=== PATIENT | male | born 1960 | race Two or more races ===

== ENCOUNTER 2018-04-01 17:15 | Emergency (ER) | payer BC ==
[2018-04-01] MEDS: IPRATRPIUM/ALBUTEROL 0.5/2.5MG 3 ML NEBU. NEB (17:42)
[2018-04-01 18:02] LABS: ADD MAN DIFF? NO
[2018-04-01] MEDS: BENZONATATE 100 MG CAPSULE. PO (18:03)
[2018-04-01] MEDS: predniSONE 20 MG TABLET PO (18:03)
[2018-04-01 18:04] LABS: BASO # 0.1 x10^3/uL (0.0-0.2); BASO % 1 % (0-3); EOS # 0.3 x10^3/uL (0.0-0.7); EOS % 4 % (0-3); HEMATOCRIT 44.8 % (39.0-53.0); HEMOGLOBIN 15.3 g/dL (13.0-17.5); LYMPH % 32 % (24-48); MEAN CORPUSCULAR HEMOGLOBIN 31 pg (25-35); MEAN CORPUSCULAR HGB CONC 34 g/dL (31-37); MEAN CORPUSCULAR VOLUME 92 fL (79-100); MONO # 0.9 x10^3/uL (0.0-1.1); MONO % 14 % (0-9); NEUT # 3.1 x10^3uL (1.8-7.7); NEUT % 49 % (31-73); PLATELET COUNT 238 x10^3/uL (140-400); RED BLOOD COUNT 4.89 x10^6/uL (4.30-5.70); RED CELL DISTRIBUTION WIDTH 14.3 % (11.5-14.5); WHITE BLOOD COUNT 6.4 x10^3/uL (4.0-11.0)
[2018-04-01 18:13] LABS: INR 1.1 (0.8-1.1); PROTHROMBIN TIME PATIENT 13.2 SEC (11.7-14.0)
[2018-04-01 18:16] LABS: D-DIMER 0.78 ug/mlFEU (0.00-0.50)
[2018-04-01 18:25] LABS: ANION GAP 9 (6-14); BLOOD UREA NITROGEN 18 mg/dL (8-26); CALCIUM 8.7 mg/dL (8.5-10.1); CARBON DIOXIDE 27 mmol/L (21-32); CHLORIDE 101 mmol/L (98-107); CREATININE 0.9 mg/dL (0.7-1.3); GFR 87.6; GLUCOSE 128 mg/dL (70-99); MAGNESIUM 1.9 mg/dL (1.8-2.4); POTASSIUM 3.9 mmol/L (3.5-5.1); SODIUM 137 mmol/L (136-145)
[2018-04-01 18:28] LABS: TROPONINI < 0.017 ng/mL (0.000-0.055)
[2018-04-01 18:32] LABS: THYROID STIM HORMONE (TSH) 0.826 uIU/mL (0.358-3.74)
[2018-04-01 18:35] LABS: NT-PRO BNP 8 pg/mL (0-124)
[2018-04-01 18:35] LABS: CKMB INDEX 0.6 % (0-4); CREATINE KINASE 361 U/L (39-308)
[2018-04-01 18:58] LABS: BILIRUBIN,URINE NEGATIVE (NEG); CLARITY,URINE CLEAR; COLOR,URINE YELLOW; GLUCOSE,URINE NEGATIVE (NEG); NITRITE,URINE NEGATIVE (NEG); PROTEIN,URINE NEGATIVE (NEG-TRACE)
[2018-04-01] MEDS ORDERED: CONTRAST GIVEN MC (19:00)
[2018-04-01 19:04] LABS: BARBITURATES NEG (NEG); BENZODIAZEPINES NEG (NEG); CANNABINOIDS POS (NEG); COCAINE NEG (NEG); METHADONE NEG (NEG); OPIATES NEG (NEG); PHENCYCLIDINE NEG (NEG)
[2018-04-01 19:05] LABS: AMPHETAMINE/METHAMPHETAMINE NEG (NEG); ETHANOL, URINE NEG (NEG)
[2018-04-01 19:10] LABS: BACTERIA,URINE 0 /HPF (0-FEW)
[2018-04-01] MEDS: IOHEXOL 300 MG/ML 100ML VIAL. IV (19:30)
[2018-04-02 08:08] LABS: NEGATIVE OBC STREP NEG; POSITIVE OBC STREP POS
== END 2018-04-01 21:10 | disposition home or self-care (01) ==
LOC: ER 21:10
DX: J20.9 Acute bronchitis, unspecified (principal); Z88.0 Allergy status to penicillin
CPT/HCPCS: 36415; 71045; 71275; 80048; 80307; 81001; 82553; 83735; 83880; 84443; 84484; 85025; 85379; 85610; 87070; 87880; 93005; 94640; 99285-25; J7512; J7620; Q9967

== ENCOUNTER 2018-11-09 18:23 | Observation (INO) | payer BC ==
[~2018-11-09] VITALS: Ht 175.3 cm; Wt 86.4 kg
[~2018-11-09 18:23] MED LIST: ALBU2.5V8 INH; AZIT250T6 PO; BENZ100C PO; PRED20TA PO
[2018-11-09 18:55] LABS: BASO # 0.1 x10^3/uL (0.0-0.2); BASO % 1 % (0-3); EOS # 0.1 x10^3/uL (0.0-0.7); EOS % 1 % (0-3); HEMATOCRIT 40.6 % (39.0-53.0); HEMOGLOBIN 14.2 g/dL (13.0-17.5); LYMPH % 41 % (24-48); MEAN CORPUSCULAR HEMOGLOBIN 32 pg (25-35); MEAN CORPUSCULAR HGB CONC 35 g/dL (31-37); MEAN CORPUSCULAR VOLUME 92 fL (79-100); MONO # 0.6 x10^3/uL (0.0-1.1); MONO % 8 % (0-9); NEUT # 3.7 x10^3uL (1.8-7.7); NEUT % 49 % (31-73); PLATELET COUNT 204 x10^3/uL (140-400); RED BLOOD COUNT 4.42 x10^6/uL (4.30-5.70); RED CELL DISTRIBUTION WIDTH 13.9 % (11.5-14.5); WHITE BLOOD COUNT 7.4 x10^3/uL (4.0-11.0)
[2018-11-09] MEDS ORDERED: NITROGLYCERIN SUBLINGUAL 0.4 MG BOTTLE OF 25. SL PRN ×2 (19:00→20:15)
--- NOTE | 2018-11-09 19:03 | PHYS DOC ---
Past Medical History Past Medical History: Diabetes-Type II, High Cholesterol, Hypertension Past Surgical History: Other Additional Past Surgical Histo: Cyst removed behind R)knee,hemorrhoids. Alcohol Use: None Drug Use: None Adult General Chief Complaint Chief Complaint: CHEST PAIN HPI HPI Patient is a 57 year old male presenting with chest pain. He's had this pain on and off for the last few days it is described as a muscle spasm he feels it around both ribs areas and also in his scapula. It happened about 90 minutes ago he took aspirin now he feels better he also was burping at the time but his blood pressure was over 200 he was worried about that. Review of Systems Review of Systems Constitutional: Denies fever or chills [] Eyes: Denies change in visual acuity, redness, or eye pain [] HENT: Denies nasal congestion or sore throat [] Respiratory: no cough Cardiovascular: No additional information not addressed in HPI [] GI: Denies , bloody stools or diarrhea [] : Denies dysuria or hematuria [] Musculoskeletal: Denies back pain or joint pain [] All other systems were reviewed and found to be within normal limits, except as documented in this note. Current Medications Current Medications Current Medications Medications (Trade) Dose Ordered Sig/Alaina Start Time Stop Time Status Last Admin Dose Admin Nitroglycerin (Nitrostat) 0.4 mg PRN Q5MIN PRN 11/09/18 19:00 Allergies Allergies Allergies Coded Allergies Type Severity Reaction Last Updated Verified Penicillins Allergy Unknown Unknown. 08/10/14 Yes Physical Exam Physical Exam Constitutional: Well developed, well nourished, no acute distress, non-toxic appearance. [] HENT: Normocephalic, atraumatic, bilateral external ears normal, oropharynx moist, no oral exudates, nose normal. [] Eyes: PERRLA, EOMI, conjunctiva normal, no discharge. [] Neck: Normal range of motion, no tenderness, supple, no stridor. [] Cardiovascular:Heart rate regular rhythm, no murmur [] Lungs & Thorax: Bilateral breath sounds clear to auscultation [] Abdomen: Bowel sounds normal, soft, no tenderness, no masses, no pulsatile masses. [] Skin: Warm, dry, no erythema, no rash. [] Back: No tenderness, no CVA tenderness. [] Extremities: No tenderness, no cyanosis, no clubbing, ROM intact, no edema. [] Neurologic: Alert and oriented X 3, normal motor function, normal sensory function, no focal deficits noted. [] Psychologic: Affect normal, judgement normal, mood normal. [] Current Patient Data Vital Signs Vital Signs Date Time Temp Pulse Resp B/P (MAP) Pulse Ox O2 Delivery O2 Flow Rate FiO2 11/09/18 18:35 98.1 60 21 179/86 (117) 100 Room Air 98.1 Lab Values Laboratory Tests Test 11/09/18 18:35 White Blood Count 7.4 x10^3/uL (4.0-11.0) Red Blood Count 4.42 x10^6/uL (4.30-5.70) Hemoglobin 14.2 g/dL (13.0-17.5) Hematocrit 40.6 % (39.0-53.0) Mean Corpuscular Volume 92 fL (79-100) Mean Corpuscular Hemoglobin 32 pg (25-35) Mean Corpuscular Hemoglobin Concent 35 g/dL (31-37) Red Cell Distribution Width 13.9 % (11.5-14.5) Platelet Count 204 x10^3/uL (140-400) Neutrophils (%) (Auto) 49 % (31-73) Lymphocytes (%) (Auto) 41 % (24-48) Monocytes (%) (Auto) 8 % (0-9) Eosinophils (%) (Auto) 1 % (0-3) Basophils (%) (Auto) 1 % (0-3) Neutrophils # (Auto) 3.7 x10^3uL (1.8-7.7) Lymphocytes # (Auto) 3.0 x10^3/uL (1.0-4.8) Monocytes # (Auto) 0.6 x10^3/uL (0.0-1.1) Eosinophils # (Auto) 0.1 x10^3/uL (0.0-0.7) Basophils # (Auto) 0.1 x10^3/uL (0.0-0.2) Prothrombin Time 13.4 SEC (11.7-14.0) Prothrombin Time INR 1.1 (0.8-1.1) Sodium Level 143 mmol/L (136-145) Potassium Level 4.0 mmol/L (3.5-5.1) Chloride Level 104 mmol/L (98-107) Carbon Dioxide Level 29 mmol/L (21-32) Anion Gap 10 (6-14) Blood Urea Nitrogen 11 mg/dL (8-26) Creatinine 0.9 mg/dL (0.7-1.3) Estimated GFR (Cockcroft-Gault) 87.6 BUN/Creatinine Ratio 12 (6-20) Glucose Level 101 mg/dL (70-99) H Calcium Level 9.2 mg/dL (8.5-10.1) Total Bilirubin 0.3 mg/dL (0.2-1.0) Aspartate Amino Transferase (AST) 21 U/L (15-37) Alanine Aminotransferase (ALT) 36 U/L (16-63) Alkaline Phosphatase 60 U/L (46-116) Troponin I Quantitative < 0.017 ng/mL (0.000-0.055) QY-Vlu-Q-Type Natriuretic Peptide 28 pg/mL (0-124) Total Protein 7.2 g/dL (6.4-8.2) Albumin 4.0 g/dL (3.4-5.0) Albumin/Globulin Ratio 1.3 (1.0-1.7) Laboratory Tests 11/09/18 18:35 Laboratory Tests 11/09/18 18:35 EKG EKG [] Interpretation Time: EKG shows a normal sinus rhythm rate of 59 no acute ischemic changes noted interpreted by me the time of encounter no STEMI was seen. Radiology/Procedures Radiology/Procedures [] Impressions: CXR NEG ACUTE INTERP BY ME AT TIME OF ENCOUNTER. Course & Med Decision Making Course & Med Decision Making Pertinent Labs and Imaging studies reviewed. (See chart for details) []chest pain some atypical features does not sound like pe or dissection no risk stratifcation multilpe risk factors admit for further mgmt h 1 e 0 a 1 r 2 t 0 d/w josh AT 8 PM REQUESTS admit card consult. pt aware, feels better bp down to 150's toko asa prior to arrival Dragon Disclaimer Dragon Disclaimer This electronic medical record was generated, in whole or in part, using a voice recognition dictation system. Departure Departure Impression: Primary Impression: Chest pain Disposition: ADMITTED INPATIENT Condition: STABLE Referrals: NO PCP (PCP) RACHELE MERCHANT MD Nov 09, 2018 19:03
[2018-11-09 19:04] LABS: PROTHROMBIN TIME PATIENT 13.4 SEC (11.7-14.0)
[2018-11-09 19:17] LABS: CALCIUM 9.2 mg/dL (8.5-10.1); CREATININE 0.9 mg/dL (0.7-1.3); GFR 87.6
[2018-11-09] MEDS ORDERED: OLME20TA17 PO (19:19)
[2018-11-09] MEDS ORDERED: PRAV10TA2 PO (19:19)
[2018-11-09] MEDS ORDERED: METF500T9 PO (19:19)
[2018-11-09] MEDS ORDERED: ASPI81TA50 PO (19:19)
[2018-11-09 19:22] LABS: ALBUMIN/GLOBULIN RATIO 1.3 (1.0-1.7); TOTAL BILIRUBIN 0.3 mg/dL (0.2-1.0); TOTAL PROTEIN 7.2 g/dL (6.4-8.2)
--- NOTE | 2018-11-09 19:49 | EKG ---
[facility] [address] [place] [address] Test Date: 2018-11-09 Test Time: 18:32:40 Pat Name: BLANCA WOODARD Department: Room: Gender: M Legal Contracts Specialist: : 1960 Requested By: RACHELE MERCHANT Order Number: [id number] Reading MD: Measurements Intervals [place] Rate: 59 P: 31 OK: 182 QRS: -27 QRSD: 108 T: 19 QT: 404 QTc: 404 Interpretive Statements SINUS RHYTHM LEFTWARD AXIS QRS(T) CONTOUR ABNORMALITY CONSIDER ANTEROSEPTAL MYOCARDIAL DAMAGE POSSIBLY ABNORMAL ECG RI6.01 No previous ECG available for comparison
[2018-11-09] MEDS ORDERED: fentaNYL PF VIAL 100 MCG/2 ML VIAL IV ONE (20:15)
[2018-11-09 21:20] VITALS: BP 140/78
--- NOTE | 2018-11-09 21:35 | NUR ---
Pt arrived to room 263 per wheelchair. Assessment completed vss poc explained pt denies pain at time of assessment will resume care and continue to monitor pt. call light in reach.
--- NOTE | 2018-11-09 22:33 | RAD ---
PORTABLE CHEST 1V Clinical Indication: Chest pain Comparison: AP chest April 01, 2018. Findings: The cardiomediastinal silhouette is normal. Lungs are clear. There is no pneumothorax. No pleural effusion is appreciated. No acute bone abnormality. Degenerative endplate spurring of the thoracic spine. IMPRESSION: No acute cardiopulmonary process. Electronically signed by: Surinder Nguyen MD (11/09/2018 10:29 PM) [facility]
[2018-11-09] MEDS ORDERED: DEXTROSE 50% 25 GM / 50ML DISP.SYRIN. IV PRN (22:45)
[2018-11-09] MEDS ORDERED: ALBUTEROL SULFATE 2.5 MG/3 ML NEBU. INH PRN (22:45)
[2018-11-09] MEDS: BENZONATATE 100 MG CAPSULE. PO SCH (23:00)
[2018-11-09] MEDS ORDERED: ATORVASTATIN CALCIUM 10 MG TABLET. PO SCH (23:00)
[2018-11-09 23:20] VITALS: BP 143/76
[2018-11-10 02:50] VITALS: BP 123/69
--- NOTE | 2018-11-10 04:53 | EKG ---
[facility] [address] [place] [address] Test Date: 2018-11-10 Test Time: 04:46:06 Pat Name: BLANCA WOODARD Department: Room: 263 1 Gender: M Public Relations Consultant: JOSHUA : 1960 Requested By: JUNE MACHADO Order Number: [id number] Reading MD: Measurements Intervals [place] Rate: 43 P: 43 [place]: 206 QRS: -26 QRSD: 114 T: 5 QT: 488 QTc: 417 Interpretive Statements SINUS BRADYCARDIA LEFTWARD AXIS NO SPECIFIC ECG ABNORMALITIES RI6.01 Compared to ECG 04/01/2018 18:00:00 Left-axis deviation now present Sinus rhythm no longer present
[2018-11-10 07:50] VITALS: BP 112/60
[2018-11-10] MEDS: metFORMIN 500 MG TABLET PO SCH ×2 (08:00→17:00)
[2018-11-10] MEDS: INSULIN LISPRO 300 UNITS/3 ML INSULN.PEN. SQ SCH ×3 (08:00→17:00)
[2018-11-10 08:05] LABS: CHOLESTEROL/HDL RATIO 3.3
[2018-11-10] MEDS ORDERED: LOSARTAN POTASSIUM 50 MG TABLET. PO SCH (09:00)
[2018-11-10] MEDS ORDERED: ASPIRIN ENTERIC COATED 81 MG TABLET.DR. PO SCH (09:00)
[2018-11-10] MEDS ORDERED: AZITHROMYCIN 250 MG TABLET. PO SCH (09:00)
[2018-11-10] MEDS ORDERED: predniSONE 20 MG TABLET PO SCH (09:00)
[2018-11-10] MEDS: BENZONATATE 100 MG CAPSULE. PO SCH ×2 (09:00→14:00)
[2018-11-10 11:20] VITALS: BP 105/57
--- NOTE | 2018-11-10 11:28 | CARD ---
MR#: [id number] Date of Study: 11/10/2018 Ordering Physician: JUNE MACHADO, Referring Physician: JUNE MACHADO, Tech: Wendy Hermosillo APPROVED REPORT EXAM: Two-dimensional and M-mode echocardiogram with Doppler and color Doppler. Other Information Quality : GoodHR: 47bpm INDICATION Chest Pain 2D DIMENSIONS RVDd3.0 (2.9-3.5cm)Left Atrium(2D)3.0 (1.6-4.0cm) IVSd0.9 (0.7-1.1cm)Aortic Root(2D)3.0 (2.0-3.7cm) LVDd4.7 (3.9-5.9cm)LVOT Diameter2.3 (1.8-2.4cm) PWd0.9 (0.7-1.1cm)LVDs3.2 (2.5-4.0cm) FS (%) 31.7 %SV60.8 ml LVEF(%)59.6 (>50%) Aortic Valve AoV Peak Armand.129.6cm/sAoV VTI30.9cm AO Peak GR.6.7mmHgLVOT Peak Armand.101.7cm/s LVOT VTI 25.45cmAO Mean GR.4mmHg SANDRITA (VMAX)2.41xk8FEO (VTI)3.31cm2 Mitral Valve MV E Cepiiqao59.6cm/sMV DECEL [id number] MV A Cbusorse00.7cm/sMV TBH15xv E/A Ratio1.1MVA (PHT)2.95cm2 TDI E/Lateral E'5.9E/Medial E'7.8 Pulmonary Valve PV Peak Oaairfof193.7cm/sPV Peak Grad.4mmHg Tricuspid Valve TR P. Xniaascf424fi/sTR Peak Gr.16mmHg Pulmonary Vein S1 Iodyodca63.9cm/sD2 Ewnatowj01.3cm/s PVa [id number] LEFT VENTRICLE The left ventricle is normal size. There is normal left ventricular wall thickness. The left ventricu lar systolic function is normal and the ejection fraction is within normal range. The Ejection Fracti on is 55% There is normal LV segmental wall motion. The left ventricular diastolic function and filli ng is normal for age. RIGHT VENTRICLE The right ventricle is normal size. There is normal right ventricular wall thickness. The right ventr icular systolic function is normal. ATRIA The left atrium size is normal. The right atrium size is normal. The interatrial septum is intact wit h no evidence for an atrial septal defect or patent foramen ovale as noted on 2-D or Doppler imaging. AORTIC VALVE The aortic valve is thickened but opens well. Doppler and Color Flow revealed no significant aortic r egurgitation. There is no significant aortic valvular stenosis. MITRAL VALVE The mitral valve is normal in structure and function. There is no evidence of mitral valve prolapse. There is no mitral valve stenosis. Doppler and Color-flow revealed trace mitral regurgitation. TRICUSPID VALVE The tricuspid valve is normal in structure and function. Doppler and Color Flow revealed trace tricus pid regurgitation. There is no tricuspid valve stenosis. PULMONIC VALVE The pulmonic valve is not well visualized. Doppler and Color Flow revealed trace pulmonic valvular re gurgitation. There is no pulmonic valvular stenosis. GREAT VESSELS The aortic root is normal in size. Normal pulmonary venous flow (Doppler). The IVC was not visualized . PERICARDIAL EFFUSION There is no evidence of significant pericardial effusion. Critical Notification Critical Value: No <Conclusion> The left ventricular systolic function is normal and the ejection fraction is within normal range. Th e Ejection Fraction is 55% There is normal LV segmental wall motion. The left ventricular diastolic function and filling is normal for age. Signed by : Hany Garrido, Electronically Approved : 11/10/2018 11:26:55
--- NOTE | 2018-11-10 11:49 | PDOC2 ---
NATALI OG OPTICAL ENGINEERING MANAGER 11/10/18 1149: CARDIAC CONSULT DATE OF CONSULT Date of Consult DATE: 11/10/18 TIME: 11:26 REASON FOR CONSULT Reason for Consult: chest pain REFERRING PHYSICIAN Referring Physician: Mima SOURCE Source: Chart review, Patient HISTORY OF PRESENT ILLNESS HISTORY OF PRESENT ILLNESS This is a pleasant 57 yo male admitted for complains of mainly left back pain. Reports of sharp pain below left shoulder blade which then radidated to left lower back then anteriorly. This occurred yesterday sustained after lifting 2 cases of 6 gallon water. Presently this back pain is reproducible with palpation. No SOA. No IVY or exertional CP. No recent falls. No nausea vomiting, diarrhea. Denies any prior CAD, VTE, or any arrhythmias. PAST SURGICAL HISTORY Past Surgical History: Other (left knee cyst removal; hemorrhoidectomy) SOCIAL HISTORY Smoke: 1 pack per day (>20 pk ) ALCOHOL: occassional Drugs: None Lives: with Family CURRENT MEDICATIONS CURRENT MEDICATIONS Current Medications Medications (Trade) Dose Ordered Sig/Alaina Route PRN Reason Start Time Stop Time Status Last Admin Dose Admin Fentanyl Citrate (Fentanyl 2ml Vial) 50 mcg 1X ONCE IV 11/09/18 20:15 11/09/18 20:17 DC 11/09/18 20:39 ALLERGIES ALLERGIES: Coded Allergies: Penicillins (Verified Allergy, Intermediate, 11/09/18) ROS Review of System 14 point ROS evaluated with pertinent positives noted per HPI PHYSICAL EXAM General: Alert, Oriented X3, Cooperative, No acute distress HEENT: Atraumatic, Mucous membr. moist/pink Lungs: Clear to auscultation, Normal air movement Heart: Regular rate (SB), Normal S1, Normal S2, No murmurs Abdomen: Soft, No tenderness Extremities: No cyanosis, No edema Skin: No breakdown, No significant lesion Neuro: Normal speech, Sensation intact Psych/Mental Status: Mental status NL, Mood NL MUSCULOSKELETAL: Osteoarthritic changes both hands VITALS VITALS Vital Signs Date Time Temp Pulse Resp B/P (MAP) Pulse Ox O2 Delivery O2 Flow Rate FiO2 11/10/18 11:20 97.4 54 16 105/57 (73) 99 Room Air 97.4 LABS Lab: Laboratory Tests Test 11/09/18 18:35 11/09/18 23:16 11/10/18 00:15 1/3/19 07:10 White Blood Count 7.4 x10^3/uL (4.0-11.0) Red Blood Count 4.42 x10^6/uL (4.30-5.70) Hemoglobin 14.2 g/dL (13.0-17.5) Hematocrit 40.6 % (39.0-53.0) Mean Corpuscular Volume 92 fL (79-100) Mean Corpuscular Hemoglobin 32 pg (25-35) Mean Corpuscular Hemoglobin Concent 35 g/dL (31-37) Red Cell Distribution Width 13.9 % (11.5-14.5) Platelet Count 204 x10^3/uL (140-400) Neutrophils (%) (Auto) 49 % (31-73) Lymphocytes (%) (Auto) 41 % (24-48) Monocytes (%) (Auto) 8 % (0-9) Eosinophils (%) (Auto) 1 % (0-3) Basophils (%) (Auto) 1 % (0-3) Neutrophils # (Auto) 3.7 x10^3uL (1.8-7.7) Lymphocytes # (Auto) 3.0 x10^3/uL (1.0-4.8) Monocytes # (Auto) 0.6 x10^3/uL (0.0-1.1) Eosinophils # (Auto) 0.1 x10^3/uL (0.0-0.7) Basophils # (Auto) 0.1 x10^3/uL (0.0-0.2) Prothrombin Time 13.4 SEC (11.7-14.0) Prothromb Time International Ratio 1.1 (0.8-1.1) Sodium Level 143 mmol/L (136-145) Potassium Level 4.0 mmol/L (3.5-5.1) Chloride Level 104 mmol/L (98-107) Carbon Dioxide Level 29 mmol/L (21-32) Anion Gap 10 (6-14) Blood Urea Nitrogen 11 mg/dL (8-26) Creatinine 0.9 mg/dL (0.7-1.3) Estimated GFR (Cockcroft-Gault) 87.6 BUN/Creatinine Ratio 12 (6-20) Glucose Level 101 mg/dL (70-99) Calcium Level 9.2 mg/dL (8.5-10.1) Total Bilirubin 0.3 mg/dL (0.2-1.0) Aspartate Amino Transf (AST/SGOT) 21 U/L (15-37) Alanine Aminotransferase (ALT/SGPT) 36 U/L (16-63) Alkaline Phosphatase 60 U/L (46-116) Troponin I Quantitative < 0.017 ng/mL (0.000-0.055) < 0.017 ng/mL (0.000-0.055) < 0.017 ng/mL (0.000-0.055) XO-Bbm-V-Type Natriuretic Peptide 28 pg/mL (0-124) Total Protein 7.2 g/dL (6.4-8.2) Albumin 4.0 g/dL (3.4-5.0) Albumin/Globulin Ratio 1.3 (1.0-1.7) Glucose (Fingerstick) 80 mg/dL (70-99) Triglycerides Level 67 mg/dL (0-150) Cholesterol Level 132 mg/dL (0-200) LDL Cholesterol, Calculated 79 mg/dL (0-100) VLDL Cholesterol, Calculated 13 mg/dL (0-40) Non-HDL Cholesterol Calculated 92 mg/dL (0-129) HDL Cholesterol 40 mg/dL (40-60) Cholesterol/HDL Ratio 3.3 Thyroid Stimulating Hormone (TSH) 1.156 uIU/mL (0.358-3.74) Test 11/10/18 08:12 Glucose (Fingerstick) 76 mg/dL (70-99) ASSESSMENT/PLAN ASSESSMENT/PLAN 1. Atypical Chest pain: noncardiac MSK 2. Asymptomatic SB: lowest mid 40s. 3. Intermittent dizziness 4. DM2 5. HTN: controlled. Takes micardis 6. HLP: controlled with statin 7. Tobaccoism Recommendations 1. Will ambulate and note HR response. Discussed with staff 2. Will arrange for outpt event monitor and note any associated xavier/ tachyarrhythmias with his his brief dizzy episodes. 3. TTE. Avoid AV andres blockers. 4. Smoking cessation BLADE DOVER MD 11/10/18 9459: CARDIAC CONSULT ASSESSMENT/PLAN ASSESSMENT/PLAN Pt seen and examined. Agree with above CHEMISTS note. Normal exam, ekg, trop and echo Ok for DC from CV standpoint. f/u in the office prn for any recurrent pain and eval of monitor. If persistent pain, given history of DM, could consider outpt stress testing. Thanks NATALI OG APRN Nov 10, 2018 11:49 BLADE DOVER MD Nov 10, 2018 18:45
[2018-11-10] MEDS ORDERED: traMADol 50 MG TABLET PO PRN (12:45)
--- NOTE | 2018-11-10 14:30 | NUR ---
SS following for discharge planning. SS reviewed pt chart and met with pt's RN. Pt is from home. Pt's RN reported that pt will discharge to home and has no no discharge needs at this time. SS will continue to follow for pending needs.
[2018-11-10 15:37] VITALS: BP 118/62
--- NOTE | 2018-11-10 17:40 | PDOC ---
Provider Note Provider Note Pt seen.H&P dictated. #[id number] JUNE MACHADO MD Nov 10, 2018 17:40
--- NOTE | 2018-11-10 18:14 | HP ---
ADMIT DATE: 11/09/2018 REASON FOR ADMISSION TO THE HOSPITAL: Chest pain, mostly from the back, going to the front. The patient has risk factors including diabetes, hypertension, and hyperlipidemia. HISTORY OF PRESENT ILLNESS: The patient is a 57-year-old male. The patient has a history of diabetes, hypertension and he was lifting stuff, cases of water bottles as well as he remember he was also working on his car, he noticed some pain going to the front. Came to the Emergency Room because of his risk factors. The patient was admitted for observation. Cardiology was consulted. PAST MEDICAL HISTORY: History of hypertension, hyperlipidemia, diabetes and COPD. PAST SURGICAL HISTORY: Cyst removed in the knee, hemorrhoidectomy. SOCIAL HISTORY: Smokes 1 pack for 20 years. Denies alcohol. Denies any street drugs. ALLERGIES: PENICILLIN CAUSES RASH. MEDICATIONS AT HOME: The patient is on aspirin 81 mg daily, metformin 500 mg twice a day, Benicar 20 mg daily, pravastatin 10 mg daily, albuterol inhaler and he has recently finished Zithromax Z-RENNY. FAMILY HISTORY: Diabetes, hypertension. REVIEW OF SYMPTOMS: Cardiac mo, pain going from the back to the front, has been moving stuff lately. No nausea or vomiting. Rest of the 14 systems was reviewed and negative. PHYSICAL EXAMINATION: GENERAL: The patient is not in any distress, pleasant. The patient is ready to go home today. VITAL SIGNS: Temperature 97, pulse 54, respirations 16, blood pressure 105/57, 99% on room air. HEENT: Head is atraumatic. Pupils equal. Oral cavity: No congestion. NECK: Supple. Thyroid not enlarged. JVD not elevated. CHEST: Symmetrical. CARDIOVASCULAR: S1, S2. LUNGS: Clear to auscultation. No wheezing. ABDOMEN: Soft, no mass palpable. EXTERNAL GENITALIA: No Hanson. RECTAL: Deferred. EXTREMITIES: No calf tenderness, no edema. NEUROLOGIC: Cranial nerves intact. Power 5/5 in extremities. LABORATORY DATA: Shows a white count of 7, hemoglobin 14, platelets 204. INR is 1.1. Electrolytes are sodium 140, potassium 4.0, chloride 104, bicarbonate 29, anion gap 10, BUN 11, creatinine 0.9, glucose 101. LFTs were normal. Troponin was negative. Chest x-ray negative and EKG negative for ischemia and echocardiogram was 55% ejection fraction, no wall motion abnormalities. FINAL IMPRESSION: 1. Atypical chest pain. 2. Risk factors including diabetes, hypertension, hyperlipidemia. PLAN: At this time, was admit to the hospital overnight for observation. Serial cardiac enzymes. Cardiology was consulted. Cardiac enzymes negative. Echo was negative. The patient was discharged. The patient has bradycardia, probably sent home him and monitor by Cardiology. Smoking counseling was done. JUNE MACHADO MD DR: SEDA/nts JOB#: [id number] / [id number] adrianna Rodriguez Dr.
--- NOTE | 2018-11-10 18:50 | NUR ---
Pt discharged home with no additional services, ambulated to hospital entrance where family was awaiting. Education and information regarding Dx and f/u appointment provided to Pt who verbalized understanding and had no further questions. No changes from previous assessment, Pt denies dizziness or discomfort.
[2018-11-10 20:13] LABS: HEMOGLOBIN A1C 5.9 % (4.8-5.6)
--- NOTE | 2018-11-14 21:44 | PDOC ---
Provider Note Provider Note Discharge summary dictated. #[id number] JUNE MACHADO MD Nov 14, 2018 21:44
--- NOTE | 2018-11-14 21:54 | DS ---
DATE OF DISCHARGE: 11/10/2018 REASON FOR ADMISSION TO THE HOSPITAL: Atypical chest pain, risk factors including diabetes, hypertension, hyperlipidemia. CONSULTATIONS: Dr. Quiros. PROCEDURES DONE: Echocardiogram. HOSPITAL COURSE: The patient is a 57-year-old male, with history of diabetes, hypertension as risk factors, came with pain, mostly left side in the back, was admitted to the hospital overnight for observation. Cardiac enzymes and EKG were negative. A1c, lipids, TSH were normal. Echocardiogram shows a good left ventricle function. The patient had a little bit of bradycardia at 57 without any medications, was recommending outpatient Holter monitor. Otherwise, the patient's condition remained stable. He was discharged. Echocardiogram 55%, normal motion. FINAL DIAGNOSES: 1. Noncardiac chest pain, possible skeletomuscular. 2. Diabetes, hypertension, hyperlipidemia. 3. Bradycardia. DISPOSITION: Home. Outpatient Holter monitor, may be stress test down the road if continues to have symptoms. The patient was recommended low dose aspirin, is on metformin, Benicar and pravastatin. JUNE MACHADO MD DR: SEDA/vickie JOB#: [id number] / [id number] SANDER Dominguez
== END 2018-11-10 18:50 | disposition home or self-care (01) ==
LOC: ER 18:23 → 2 SOUTH 19:30
PROVIDERS: ADMIT Internal Medicine; ATTEND Internal Medicine
DX: R07.89 Other chest pain (principal); E11.9 Type 2 diabetes mellitus without complications; E78.5 Hyperlipidemia, unspecified; I10 Essential (primary) hypertension; J44.9 Chronic obstructive pulmonary disease, unspecified; F17.210 Nicotine dependence, cigarettes, uncomplicated; Z83.3 Family history of diabetes mellitus; Z82.49 Family history of ischemic heart disease and other diseases of the circulatory system
CPT/HCPCS: 36415; 71045; 80053; 80061; 82962; 83036; 83880; 84443; 84484; 85025; 85610; 93005; 93306; 96374; 99284; G0378; J1815; J3010; G0379